=== PATIENT | female | born 1995 | race Asian ===

== ENCOUNTER 2018-05-13 14:11 | Day surgery (SDC) | payer SELFPAY ==
[2018-05-13] MEDS ORDERED: NS 0.9% 1000 ML* 1,000 ML IV ONE (14:32)
[2018-05-13 15:01] LABS: ABS Basophils 0 10^3/ul (0-0.2); ABS Eosinophils 0 10^3/ul (0-0.6); ABS Monocytes 0.5 10^3/ul (0-0.8); ABS Neutrophils 8.9 10^3/ul (1.5-7.7); ABS Nucleated RBC 0 10^3/ul; Eosinophil % 0.4 % (0-6); Hematocrit 40 % (35-47); Hemoglobin 13.2 g/dl (12.0-16.0); Lymphocyte % 9.7 % (25-47); Mean Corpuscular HGB Conc 33 g/dl (31-36); Mean Corpuscular Hemoglobin 31 pg (27-31); Mean Corpuscular Volume 93 fL (80-97); Nucleated Red Blood Cells % 0; Platelet Count 170 10^3/ul (150-450); Red Blood Count 4.32 10^6/ul (4.00-5.40); Red Cell Distribution Width 14 % (10.5-15); White Blood Count 10.5 10^3/ul (3.5-10.8)
[2018-05-13 15:19] LABS: EGFR Non-African American 103.9 (>60)
[2018-05-13 15:22] LABS: INR 0.99 (0.77-1.02)
[2018-05-13] MEDS ORDERED: Ketorolac INJ* 30 MG/ML 1 ML VIAL IV PUSH ONE (15:27)
--- NOTE | 2018-05-13 16:11 | RAD ---
HISTORY: poss appy, right lower quadrant pain COMPARISONS: None TECHNIQUE: Multiple transverse and longitudinal ultrasound images were obtained of the right lower quadrant using grayscale and color Doppler imaging. FINDINGS: There is a tubular, performed, blind-ending viscus with bowel mucosal signature consistent with the appendix measuring up to 1.2 cm in caliber. The wall is thickened measuring 0.4 cm. There is no periappendiceal fluid or loculated fluid collection. There is increased echogenicity of the periappendiceal fat. IMPRESSION: DILATED APPENDIX WITH PERIAPPENDICEAL INFLAMMATORY CHANGE CONSISTENT WITH ACUTE APPENDICITIS. THERE IS NO FREE OR LOCULATED FLUID COLLECTION.
--- NOTE | 2018-05-13 16:38 | ED ---
Abdominal Pain/Female - HPI Summary HPI Summary: Patient is a 23-year-old female with no significant PMH presenting to the ED with a one-day history of RLQ pain, worse with palpation and better with rest. Worse with sitting forward and better with lying flat. She states she has not been able to eat or drink due to pain, however denies any nausea or vomiting. Denies any constipation or diarrhea. Denies any history of ovarian cysts or chance of . She is currently on the Nexplanon implant. She takes a antidepressant which she obtains from [facility], but denies any other medications. Denies any allergies. She states she began her period this morning and feels this may be related. Denies any urinary symptoms or back pain. She denies any fevers, sweats. She is endorsing chills intermittently over the past 2 days. She states she is not hungry and has not eaten since yesterday. She's never been anticoagulated, no past surgeries and has never had any anesthesia. - History of Current Complaint Chief Complaint: EDDizziness Stated Complaint: MENSTRUAL CRAMPS Time Seen by Provider: 05/13/18 14:31 Hx Obtained From: Patient ?: No Onset/Duration: Sudden Onset Timing: Constant Severity Initially: Moderate Severity Currently: Moderate Pain Intensity: 0 Pain Scale Used: 0-10 Numeric Location: Discrete At: RLQ Radiates: No Character: Sharp Aggravating Factor(s): Nothing Alleviating Factor(s): Nothing Associated Signs and Symptoms: Positive: Negative. Negative: Vaginal Discharge , Nausea, Vomiting - Risk Factors Ectopic Risk Factor: Negative Ovarian Torsion Risk Factor: Negative Allergies/Adverse Reactions: Allergies Allergy/AdvReac Type Severity Reaction Status Date / Time No Known Allergies Allergy Verified 05/13/18 14:27 Home Medications: Home Medications NK [No Home Medications Reported] 05/13/18 [History Confirmed 05/13/18] PMH/Surg Hx/FS Hx/Imm Hx Previously Healthy: Yes - Immunization History Hx Pertussis Vaccination: No Immunizations Up to Date: Yes Infectious Disease History: No Infectious Disease History: Denies: Traveled Outside the [place] in Last 30 Days - Social History Occupation: Unemployed Lives: With Family Alcohol Use: None Hx Substance Use: No Substance Use Type: Reports: None Hx Tobacco Use: No Smoking Status (MU): Never Smoked Tobacco Review of Systems Constitutional: Negative Negative: Fever, Chills, Fatigue, Skin Diaphoresis Negative: Palpitations, Chest Pain Negative: Shortness Of Breath, Cough Positive: Abdominal Pain. Negative: Vomiting, Diarrhea, Nausea Genitourinary: Negative Positive: no symptoms reported, see HPI Negative: Arthralgia, Myalgia Negative: Rash, Bruising Positive: Syncope - nera syncope All Other Systems Reviewed And Are Negative: Yes Physical Exam Triage Information Reviewed: Yes Vital Signs On Initial Exam: Initial Vitals Temp Pulse Resp BP Pulse Ox 97.5 F 61 16 89/51 99 05/13/18 14:23 05/13/18 14:23 05/13/18 14:23 05/13/18 14:23 05/13/18 14:23 Vital Signs Reviewed: Yes Appearance: Positive: Well-Appearing, Well-Nourished Skin: Positive: Warm, Skin Color Reflects Adequate Perfusion Head/Face: Positive: Normal Head/Face Inspection Eyes: Positive: EOMI, DAINA, Conjunctiva Clear Neck: Positive: Supple, No Lymphadenopathy Respiratory/Lung Sounds: Positive: Clear to Auscultation, Breath Sounds Present Cardiovascular: Positive: RRR, Pulses are Symmetrical in both Upper and Lower Extremities Abdomen Description: Positive: Soft, McBurney's Point Tenderness, Other: - Positive psoas, positive obturators, negative Magallanes's, positive rebound tenderness, no guarding or distention, negative CVA tenderness bilaterally Musculoskeletal: Positive: Normal, Strength/ROM Intact Neurological: Positive: Sensory/Motor Intact, Alert, Oriented to Person Place, Time, Speech Normal Psychiatric: Positive: Normal, Affect/Mood Appropriate AVPU Assessment: Alert Diagnostics - Vital Signs Vital Signs Temp Pulse Resp BP Pulse Ox 05/13/18 16:10 98.6 F 78 18 104/82 98 05/13/18 15:00 56 100 05/13/18 14:54 57 100 05/13/18 14:37 106/60 05/13/18 14:23 97.5 F 61 16 89/51 99 - Laboratory Lab Results: Lab Results 05/13/18 05/13/18 05/13/18 Range/Units 14:44 14:44 14:44 WBC 10.5 (3.5-10.8) 10^3/ul RBC 4.32 (4.00-5.40) 10^6/ul Hgb 13.2 (12.0-16.0) g/dl Hct 40 (35-47) % MCV 93 (80-97) fL MCH 31 (27-31) pg MCHC 33 (31-36) g/dl RDW 14 (10.5-15) % Plt Count 170 (150-450) 10^3/ul MPV 8.0 (7.4-10.4) um3 Neut % (Auto) 84.4 H (38-83) % Lymph % (Auto) 9.7 L (25-47) % Hayes % (Auto) 5.0 (0-7) % Eos % (Auto) 0.4 (0-6) % Baso % (Auto) 0.5 (0-2) % Absolute Neuts (auto) 8.9 H (1.5-7.7) 10^3/ul Absolute Lymphs (auto) 1.0 (1.0-4.8) 10^3/ul Absolute Monos (auto) 0.5 (0-0.8) 10^3/ul Absolute Eos (auto) 0 (0-0.6) 10^3/ul Absolute Basos (auto) 0 (0-0.2) 10^3/ul Absolute Nucleated RBC 0 10^3/ul Nucleated RBC % 0 INR (Anticoag Therapy) 0.99 (0.77-1.02) Sodium 140 (135-145) mmol/L Potassium TNP Chloride 113 H (101-111) mmol/L Carbon Dioxide 21 L (22-32) mmol/L Anion Gap 6 (2-11) mmol/L BUN 13 (6-24) mg/dL Creatinine 0.71 (0.51-0.95) mg/dL Est GFR ( Amer) 125.7 (>60) Est GFR (Non-Af Amer) 103.9 (>60) BUN/Creatinine Ratio 18.3 (8-20) Glucose 87 (70-100) mg/dL Calcium 7.5 L (8.6-10.3) mg/dL Total Bilirubin 0.70 (0.2-1.0) mg/dL AST TNP ALT 13 (7-52) U/L Alkaline Phosphatase 39 (34-104) U/L C-Reactive Protein 6.58 (<8.01) mg/L Total Protein 5.9 L (6.4-8.9) g/dL Albumin 3.7 (3.2-5.2) g/dL Globulin 2.2 (2-4) g/dL Albumin/Globulin Ratio 1.7 (1-3) Beta HCG, Quant < 0.60 mIU/mL Result Diagrams: 05/13/18 14:44 05/13/18 14:44 Lab Statement: Any lab studies that have been ordered have been reviewed, and results considered in the medical decision making process. Abdominal Pain Fem Course/Dx - Course Course Of Treatment: Patient is evaluated for abdominal pain. On physical examination, she is noted to have significant RLQ pain on light palpation. There is positive rebound tenderness, positive psoas and positive obturator sign. Pain directly over McBurney's point. Negative Magallanes sign. Bowel sounds throughout. She has not been able to eat or drink for the past day. Due to a high suspicion for appendicitis, ultrasound was obtained. On ultrasound there appears to be significant inflammatory changes significant with acute appendicitis. No elevated white count and other labs normal. Her vital signs are stable, however she is endorsing chills. Discussed case with Dr. Olmedo who agrees to come see patient. - Diagnoses Provider Diagnoses: Appendicitis - Provider Notifications Discussed Care Of Patient With: Daryl Javris Discharge - Sign-Out/Discharge Documenting (check all that apply): Patient Departure - Discharge Plan Condition: Stable Disposition: ADMITTED TO [facility] - Billing Disposition and Condition Condition: STABLE Disposition: Admitted to [facility]
[2018-05-13] MEDS ORDERED: Midazolam* 1 MG/ML 5 ML VIAL (5 MG) ONE (16:48)
[2018-05-13] MEDS ORDERED: KETAMINE HCL* 50 MG/ML 10 ML VIAL ONE (16:48)
[2018-05-13] MEDS ORDERED: Atracurium* 10 MG/ML 10 ML VIAL ONE (16:48)
[2018-05-13] MEDS ORDERED: fentaNYL* 50 MCG/ML 2 ML VIAL (100 MCG VIAL) ONE ×2 (16:48→18:26)
[2018-05-13] MEDS ORDERED: Bupivacaine 0.25% SDV* 30 ML ONE (17:05)
[2018-05-13] MEDS ORDERED: ceFOXitin 2 GM IVPREMIX* 2 GM/50 ML BAG ONE (17:14)
[2018-05-13] MEDS ORDERED: Morphine INJ* 2 MG/ML 1 ML SYRINGE (TWO MG - NEW SYRINGE VERSION) IV PRN (17:15)
[2018-05-13] MEDS ORDERED: Naloxone* 0.4 MG/ML 1 ML VIAL IV PRN (17:15)
[2018-05-13] MEDS ORDERED: DiMENhydriNATE IV* 50 MG/ML VIAL IV PUSH PRN (17:15)
[2018-05-13] MEDS ORDERED: oxyCODONE/Acetamin 5/325 MG* TAB PO PRN (17:15)
[2018-05-13] MEDS ORDERED: PROCHLORPERAZINE INJ 5 MG/ML 2 ML VIAL IV PRN (17:15)
[2018-05-13] MEDS ORDERED: ceFOXitin 2 GM IVPREMIX* 2 GM/50 ML BAG IVPB ONE (17:16)
[2018-05-13] MEDS ORDERED: Buffered Lidocaine 0.9% SYRIN* 5 ML/SYR SYRINGE INTRADERM ONE (17:18)
[2018-05-13] MEDS ORDERED: Lidocaine 2% PF * 5 ML VIAL ONE (17:47)
[2018-05-13] MEDS ORDERED: Propofol* 10 MG/ML 20 ML BTL IV PUSH ONE (17:58)
[2018-05-13] MEDS ORDERED: Neostigmine Methylsulfate* 1 MG/ML 10 ML VIAL (1 mg/ml) ONE (17:58)
[2018-05-13] MEDS ORDERED: Ondansetron INJ* 2 MG/ML VIAL ONE (17:58)
[2018-05-13] MEDS ORDERED: Dexamethasone IV* 4 MG/ML 1 ML (4 MG) ONE (17:58)
[2018-05-13] MEDS ORDERED: Glycopyrrolate IV* 0.2 MG/ML 1 ML VIAL ONE ×2 (17:58→17:59)
[2018-05-13] MEDS ORDERED: HYDROcodone/ACETAMIN 5-325 MG* 1 TAB PO PRN (18:09)
[2018-05-13] MEDS ORDERED: Ibuprofen TAB* 400 MG PO PRN (18:10)
--- NOTE | 2018-05-13 18:16 | BRIEFOPN ---
Brief Operative Note - Surgery Procedures: PREOP/POSTOP DX: ACUTE APPENDICITIS PROC: LAP APPENDECTOMY SURG: MECENAS ASSIST: NONE ANES: GET; FELLOWS EBL: MIN IVF: 1.2 L LR SPEC: APPENDIX DRAIN/COMPL: NONE COND: STABLE FINDINGS: EARLY APPENDICITIS.
[2018-05-13] MEDS: fentaNYL* 50 MCG/ML 2 ML VIAL (100 MCG VIAL) IV PRN ×2 (18:27→18:41)
[2018-05-13] MEDS ORDERED: HYDROcodone/ACETAMIN 5-325 MG* 1 TAB ONE (18:51)
[2018-05-13 19:18] VITALS: BP 109/69
--- NOTE | 2018-05-14 23:13 | OP ---
DATE OF OPERATION: 05/13/18 - SDS DATE OF : [birth year] SURGEON: Daryl Jarvis MD FELTING MACHINE OPERATOR: None. ANESTHESIOLOGIST: Dr. Kee. ANESTHESIA: General endotracheal. PRE-OP DIAGNOSIS: Acute appendicitis. POST-OP DIAGNOSIS: Acute appendicitis. OPERATIVE PROCEDURE: Laparoscopic appendectomy. ESTIMATED BLOOD LOSS: Minimal. IV FLUIDS: Crystalloids. SPECIMENS: Appendix. DRAINS: None. COMPLICATIONS: None. INSTRUMENTS, NEEDLE, SPONGE COUNTS: Correct. OPERATIVE FINDINGS: Early appendicitis. DESCRIPTION OF PROCEDURE: The patient was brought to the operating room and placed on the table supine. Sequential compression devices were placed on both lower extremities. General anesthesia was administered. Newman catheter was placed. She was positioned and padded appropriately. She was prepped and draped in the usual sterile fashion. She received appropriate intravenous antibiotics. After the sterile prep and drape of the abdomen, a time-out was performed. Local anesthetic was infiltrated into the skin and soft tissue prior to making the incision. Entry into the abdomen through a transumbilical vertical incision using an open technique. After accessing the peritoneal cavity, a 12- mm trocar was placed. Carbon dioxide was insufflated to a pressure of 15 mmHg under direct visualization. 5-mm trocars were placed in the suprapubic midline and in the left lower quadrant. Inspection of the right lower quadrant revealed inflamed, dilated appendix with acute inflammation, no evidence of suppuration or gangrene. The appendix base was normal as was the cecum. The appendix was elevated, a window was created in the mesentery of the appendix at the base and the appendix was divided from the cecum using endo MOISES stapler with a garcia cartridge. The appendix mesentery was divided with EndoGIA stapler with a zurita cartridge. After the appendix was freed, it was placed to a retrieval bag and retrieved through the umbilical site. Hemostasis was assured. Staple lines were noted to be intact. The ports were removed under direct visualization. Carbon dioxide was released. The umbilicus was closed with interrupted 0 Vicryl. Skin incisions were closed with 4-0 Monocryl in a subcuticular fashion and then DermaFlex was applied to the wounds. The patient tolerated this procedure well, she was extubated and she was transferred to the recovery room in stable condition. [id number]/[facility] #: [id number] [facility]
== END 2018-05-13 19:36 | disposition home or self-care (01) ==
LOC: ED 14:11 → OR 17:10
PROVIDERS: ATTEND Surgery
DX: K35.80 Unspecified acute appendicitis (principal); R10.31 Right lower quadrant pain; R55 Syncope and collapse; R68.83 Chills (without fever)
CPT/HCPCS: 36415; 76705; 80053; 84702; 85025; 85610; 86140; 88304; 93005; 99283; C1776; J0694; J1100; J1885; J2250; J2405; J2704; J2710; J3010